=== PATIENT | female | born 1940 | race Caucasian/White ===

== ENCOUNTER 2019-08-18 11:31 | Emergency (ER) | payer MEDICARE, OTHER, SELFPAY ==
[2019-08-18 11:42] VITALS: BP 137/67; PULSE 61; RESP 16; TEMP 36.3; O2SAT 98
--- NOTE | 2019-08-18 11:59 | ED.WOUNDLAC ---
HPI - Wound/Laceration General Chief Complaint: Wound/Laceration Stated Complaint: FALL/R ARM WOUND Time Seen by Provider: 08/18/19 11:33 Source: patient Mode of arrival: ambulatory Limitations: no limitations History of Present Illness HPI narrative: 79 year old female presents to urgent care with complaints of skin tear to right elbow x1 week. Patient reports that she fell in her home 1 week ago and sustained a skin tear to her right elbow region. Patient reports that she is concerned that the area is becoming infected. Patient has been applying [id number] triple antibiotic ointment and dressings with little relief. Patient denies fever, bites, chills, nausea, vomiting, diarrhea or purulent drainage. Onset (ago): week(s) (1) Location: other (right elbow ) Extremity Location: Right: elbow (healing wound ) Place: home Patient tetanus UTD: Yes Context: accidental Associated symptoms: none Treatments prior to arrival: other (Triple antibiotic ointment and dressing) Related Data Home Medications Medication Instructions Recorded Confirmed amlodipine [Norvasc] 5 mg PO DAILY 06/25/19 06/25/19 diclofenac sodium 75 mg PO BID 06/25/19 06/25/19 dicyclomine 10 mg PO BID 06/25/19 06/25/19 losartan 50 mg PO DAILY 06/25/19 06/25/19 pantoprazole 40 mg PO QAM 06/25/19 06/25/19 Allergies Allergy/AdvReac Type Severity Reaction Status Date / Time tetracaine Allergy Severe HEART Unverified 03/02/19 12:47 PLAPITATIONS DURING DENTAL WORK Iodinated Contrast Media Allergy Unknown Verified 07/20/15 08:18 iodine Allergy Unknown Verified 04/28/18 11:08 oxycodone AdvReac Severe SEVERE Verified 03/02/19 12:47 INTOL. N/V, DEHYDRATION Contrast Media Allergy Severe ANAPHYLAXIS Uncoded 03/02/19 12:47 Review of Systems Review of Systems: All systems reviewed & are unremarkable except as noted in HPI and below Constitutional: Constitutional: Denies chills, Denies fatigue, Denies fever(s) and Denies weakness Cardiovascular: Cardiovascular: Denies chest pain, Denies rapid heart rate, Denies radiating jaw, neck or arm pain and Denies slow heart rate Respiratory: Respiratory: Denies cough, Denies dyspnea and Denies wheezing Gastrointestinal: Gastrointestinal: Denies abdominal pain, Denies diarrhea, Denies nausea and Denies vomiting Musculoskeletal: Musculoskeletal: Denies myalgias, Denies arthralgias and Denies joint swelling Integumentary/Breasts: Comments: skin tear to right elbow PMFSH Past Medical History Medical History Arthritis Back pain Sciatic nerve pain down left leg Colitis Depression Diverticulitis Diverticulosis GERD (gastroesophageal reflux disease) Hypercholesterolemia Hypertension IBS (irritable bowel syndrome) Uterine fibroid Surgical History Surgical History History of cholecystectomy History of orthopedic surgery Left knee scope History of spinal surgery July 2009 Family History Family History Mother Hypertension Father Family history of diabetes mellitus in first degree relative Social History Social History Smoking status: Former smoker Smoking end date: 07/14/87 Alcohol intake: current Exam Const: General: healthy appearing, no acute distress and alert Orientation/consciousness: patient oriented x3 Neck: Neck: normal visual inspection and no lymphadenopathy Resp: Effort & Inspection: normal respiratory effort and not tachypneic Auscultation: clear to auscultation bilaterally, no rales and no wheezes Cardio: Rate: regular rate, not bradycardic and not tachycardic Rhythm: regular rhythm Heart sounds: no murmurs Skin: General skin exam: normal color, no jaundice and no pallor Rashes: no rashes Wounds: wounds noted Other: 5 cm healing
== END 2019-08-18 12:15 | disposition home or self-care (01) ==
PROVIDERS: Emergency Provider Nurse Practitioner Family; PCP Student in an Organized Health Care Education/Training Program
DX: S51.001A Unspecified open wound of right elbow, initial encounter (principal); W19.XXXA Unspecified fall, initial encounter; Z87.891 Personal history of nicotine dependence; M19.90 Unspecified osteoarthritis, unspecified site; K21.9 Gastro-esophageal reflux disease without esophagitis; E78.00 Pure hypercholesterolemia, unspecified; I10 Essential (primary) hypertension
CPT/HCPCS: 99213; G0463

== ENCOUNTER 2020-12-27 10:50 | Outpatient (CLI) | payer MEDICARE, OTHER, SELFPAY ==
--- NOTE | ~2020-12-27 | XR_ITS ---
XR hand BI arthritis min 3V DATE: 12/27/2020 11:34 INDICATION: Bilateral hand pain TECHNIQUE: 4 views of each hand COMPARISON: None FINDINGS: Left hand: There is diffuse osteopenia. There is severe narrowing at the radiocarpal joint. There is narrowing at the triscaphe joint. There is severe narrowing and spurring at the first carpometacarpal joint consistent with severe osteoarthr itic arthritis. There is osteoarthritis at multiple joints including the first, fourth and fifth meta carpophalangeal joints and multiple interphalangeal joints. No fracture or dislocation, periosteal reaction or bone destruction. There is minimal calcification at the triangular cartilage. Right hand: There is diffuse osteopenia. There is mild calcification at the triangular cartilage. There is prominent osteophyte is at the first carpometacarpal joint. There is mild osteoarthritic monica nge at the metacarpophalangeal joints. There is osteoarthritis at multiple interphalangeal joints, pa rticularly in the the interphalangeal joint of the first digit and distal interphalangeal joints of t he third and fourth digits. No fracture, dislocation, periosteal reaction or bone destruction. IMPRESSION: Polyarticular osteoarthritis of both hands Mild irregular cartilage calcification Osteopenia Reviewed, dictated and finalized at location A.
--- NOTE | ~2020-12-27 | XR_ITS ---
XR sacroiliac joints min 3V DATE: 12/27/2020 11:34 INDICATION: Nonspecific colitis. TECHNIQUE: AP and bilateral oblique views of the sacroiliac joints COMPARISON: None FINDINGS: Diffuse osteopenia. Posterior surgical fusion including pedicle screws and rods at L4-5. The pubic symphysis and sacroiliac joints are intact. No erosive change or ankylosis at the sacroilia c joints. Mild bilateral hip osteoarthritis. IMPRESSION: No significant abnormality of the sacroiliac joints Posterior surgical spinal fusion at L4-5 Reviewed, dictated and finalized at Location A. Reviewed, dictated and finalized at location A.
[2020-12-27 12:02] LABS: Hematocrit 35.9 % (37.0-47.0); Hemoglobin 12.3 g/dL (12.0-15.0); Mean Corpuscular HGB Conc 34.3 g/dl (32-36); Mean Corpuscular Hemoglobin 32.1 pg (26-34); Mean Corpuscular Volume 93.7 fl (80-100); Mean Platelet Volume 9.2 fl (7.4-10.4); Platelet Count Result 289 k/mm3 (150-375); Red Blood Count 3.83 M/mm3 (4.2-5.4); Red Cell Distribution Width 13.1 % (11.5-14.5); White Blood Count 7.6 K/mm3 (4.5-10.0)
[2020-12-27 12:13] LABS: Rheumatoid Factor < 8.6 IU/ML (<12)
[2020-12-27 12:14] LABS: CRP < 0.5 mg/dL (<1.0)
[2020-12-27 12:19] LABS: Add Urine Microscopic? YES; Appearance Urine Clear (Clear); Bacteria Urine 1+ /hpf; Bilirubin Urine Negative (Negative); Blood Urine Negative (Negative); Color Urine Straw (Yellow); Glucose Urine UA Negative (Negative); Ketones Urine Negative (Negative); Leukocyte Esterase Ur 1+ LEU/UL (Negative); Nitrate Urine Negative (Negative); Protein Urine Negative (Negative); RBC Urine 0-2 /hpf (0-2); Specific Grav Ur 1.008 (1.001-1.035); Squamous Epithelial Cell Urine Rare /hpf (Few); Urobilinogen Urine Negative mg/dL (<2.0); WBC Urine 21-30 /hpf
[2020-12-27 12:37] LABS: Erythrocyte Sedimentation Rate 26 mm/hr (0-20)
[2020-12-31 12:35] LABS: Anti Cyclic Citrullinated Pept <16 Units (<20)
[2021-01-01 13:34] LABS: SM Antibody <1.0; SM/RNP Antibody <1.0
== END 2020-12-27 10:51 | disposition home or self-care (01) ==
PROVIDERS: PCP Student in an Organized Health Care Education/Training Program; Visit Provider Internal Medicine
DX: K52.839 Microscopic colitis, unspecified (principal); R76.8 Other specified abnormal immunological findings in serum; R89.9 Unspecified abnormal finding in specimens from other organs, systems and tissues; Z98.1 Arthrodesis status; M85.841 Other specified disorders of bone density and structure, right hand; M85.842 Other specified disorders of bone density and structure, left hand; M19.041 Primary osteoarthritis, right hand; M19.042 Primary osteoarthritis, left hand
CPT/HCPCS: 36415; 72202; 73130; 81001; 85027; 85652; 86140; 86200; 86235; 86430; 87077; 87086; 87088; 87186

== ENCOUNTER → 2021-03-20 12:02 | Outpatient (CLI) | payer MEDICARE, OTHER, SELFPAY ==
--- NOTE | ~2021-03-20 | DEXA_ITS ---
Bone Density Report Name: Brenda Carlos Age: 80 Sex: Female Ethnicity: White Date of : 1940 Indication: postmenopausal; screening for osteoporosis; height loss; inflammatory bowel disease; history of glucocorticoids; Referring Provider: Ulysses, Fausto Study: Bone densitometry was performed. Exam Date: March 20, 2021 Accession number: [id number] Bone Density: Region BMD T-score Z-score Classification AP Spine (L1, L2) 1.209 2.1 4.6 Normal Femoral Neck (Left) 0.696 -1.4 1.0 Osteopenia Total Hip (Left) 0.866 -0.6 1.5 Normal Femoral Neck (Right) 0.754 -0.9 1.5 Normal Total Hip (Right) 0.827 -0.9 1.1 Normal Total Hip Mean 0.847 -0.8 1.3 Normal World Health Organization criteria for BMD impression classify patients as: Normal (T-score at or above -1.0), Osteopenia (T-score between -1.0 and -2.5), or Osteoporosis (T-score at or below -2.5). 10-year Fracture Risk(1): Major Osteoporotic Fracture 18% Hip Fracture 4.7% Reported Risk Factors: [place] (), Neck BMD=0.696, BMI=31.3, glucocorticoids (1) FRAX(R) Version 3.08. Fracture probability calculated for an untreated patient. Fracture probability may be lower if the patient has received treatment. Previous Exams: Region Exam Age BMD T-score BMD Change BMD Change Date g/cm2 vs Baseline vs Previous AP Spine(L1, L2) 03/20/2021 80 1.209 2.1 0.037* 0.056* 09/08/2012 72 1.153 1.6 -0.018 -0.054* 04/13/2010 69 1.207 2.1 0.036* 0.036* 04/11/2008 67 1.172 1.8 Total Hip(Left) 03/20/2021 80 0.866 -0.6 -0.131* -0.044* 09/08/2012 72 0.910 -0.3 -0.086* -0.048* 04/13/2010 69 0.958 0.1 -0.039* -0.039* 04/11/2008 67 0.996 0.4 Total Hip(Right) 03/20/2021 80 0.827 -0.9 -0.073* -0.070* 09/08/2012 72 0.897 -0.4 -0.002 -0.004 04/13/2010 69 0.901 -0.3 0.001 0.001 04/11/2008 67 0.900 -0.3 *Denotes significance at 95% confidence level, LSC for AP Spine = 0.022 g/cm2, LSC for Total Hip = 0.027 g/cm2 Clinical Information Provided by Patient: Has taken Glucocorticoids Has the following medical conditions: Inflammatory bowel diseases, colitis, uses oral steriod for this Patient maximum height was 68 Menopause Age: 50 No regular weight bearing exercise Drinks caffeinated beverages Onset of menses at age 15.5 Number of children 4 --
--- NOTE | ~2021-03-20 | MM_ITS ---
EXAMINATION: MM screening andre BI w cecilia HISTORY: Screening mammogram TECHNIQUE: Craniocaudal and mediolateral oblique 3-D tomosynthesis images were obtained and synthetic 2-D images were generated. CAD analysis was submitted and interpreted. COMPARISON: 09/23/2014, 09/08/2012 bilateral digital screening mammogram examinations BREAST PARENCHYMAL COMPOSITION: There are scattered areas of fibroglandular density. FINDINGS: Scattered bilateral benign calcifications. There is no evidence of suspicious mass, calcifi cation, or architectural distortion to suggest malignancy in either breast. There has been no suspici ous interval change. IMPRESSION: 1. No mammographic evidence of malignancy. 2. Recommend routine screening mammography in one year. BI-RADS Category 2: Benign finding(s). Reviewed, dictated and finalized at location A.
== END ==
PROVIDERS: PCP Student in an Organized Health Care Education/Training Program; Visit Provider Student in an Organized Health Care Education/Training Program
DX: Z12.31 Encounter for screening mammogram for malignant neoplasm of breast (principal); Z78.0 Asymptomatic menopausal state; M85.852 Other specified disorders of bone density and structure, left thigh
CPT/HCPCS: 77063; 77067; 77080

== ENCOUNTER → 2022-08-08 10:23 | Outpatient (CLI) | payer MEDICARE, OTHER, SELFPAY ==
--- NOTE | ~2022-08-08 | MM_ITS ---
EXAMINATION: MM screening [facility] BI w cecilia HISTORY: Screening mammogram TECHNIQUE: Craniocaudal and mediolateral oblique 3-D tomosynthesis images were obtained and synthetic 2-D images were generated. CAD analysis was submitted and interpreted. COMPARISON: 03/20/2021, 09/23/2014, 09/09/2012 BREAST PARENCHYMAL COMPOSITION: There are scattered areas of fibroglandular density. FINDINGS: No suspicious mass, calcification, or architectural distortion are identified in either marva ast to suggest malignancy. There has been no suspicious interval change. IMPRESSION: 1. No mammographic evidence of malignancy. 2. Recommend routine screening mammography while the patient remains in good health. BI-RADS Category 1: Negative Reviewed, dictated and finalized at location A. LINER IMPRESSION: 1. No mammographic evidence of malignancy. 2. Recommend routine screening mammography while the patient remains in good he alth. BI-RADS Category 1: Negative
== END ==
PROVIDERS: PCP Student in an Organized Health Care Education/Training Program; Visit Provider Student in an Organized Health Care Education/Training Program
DX: Z12.31 Encounter for screening mammogram for malignant neoplasm of breast (principal)
CPT/HCPCS: 77063; 77067

== ENCOUNTER 2023-04-27 11:03 | Emergency (ER) | payer MEDICARE, OTHER, SELFPAY ==
[2023-04-27 11:08] VITALS: BP 171/101; PULSE 87; RESP 16; TEMP 36.4; O2SAT 99
[2023-04-27] MEDS: amLODIPine BESYLATE 5 MG TABLET PO (11:54)
[2023-04-27] MEDS: LOSARTAN POTASSIUM 50 MG TABLET PO (11:54)
[2023-04-27] MEDS: METOPROLOL SUCCINATE EXT REL 12.5 MG TABCR PO (12:05)
--- NOTE | 2023-04-27 12:35 | ED.EPISTAXIS ---
HPI - Epistaxis General Chief complaint: Epistaxis Stated complaint: epistaxis Time Seen by Provider: 04/27/23 11:07 Source: patient, EMS and RN notes reviewed Mode of arrival: EMS Limitations: no limitations History of Present Illness HPI Narrative: This is an 82 year old female who presents for evaluation of epistaxis. She reports her blooding started 2 hours prior to arrival. She is have bright red bleeding from her left nostril. She denies any trauma. She denies history of epistaxis. She takes eliquis for atrial fibrillation. She has been trying to stop bleeding with pressure. She states she is starting form small clots. She also also noticing so blood posteriorly. She denies dizziness or lightheadedness. She has been unable to take any of her medications this morning. Related Data Home Medications Medication Instructions Recorded Confirmed amlodipine 5 mg tablet (Norvasc) 5 mg PO DAILY 06/25/19 03/20/23 losartan 50 mg tablet 50 mg PO DAILY 06/25/19 03/20/23 atorvastatin 10 mg tablet (Lipitor) 10 mg PO DAILY 02/05/21 03/20/23 fluoxetine 10 mg capsule 10 mg PO DAILY 02/05/21 03/20/23 apixaban 5 mg tablet (Eliquis) 5 mg PO BID 03/28/22 03/20/23 metoprolol succinate 25 mg 12.5 mg PO DAILY 03/28/22 03/20/23 tablet,extended release 24 hr olopatadine 0.1 % eye drops 1 drp EACH EYE BID 03/28/22 03/20/23 (Pataday Twice Daily Relief) metoprolol succinate 25 mg 25 mg PO DAILY 03/20/23 03/20/23 tablet,extended release 24 hr Allergies Allergy/AdvReac Type Severity Reaction Status Date / Time tetracaine Allergy Severe HEART Verified 03/20/23 10:38 PLAPITATIONS DURING DENTAL WORK Iodinated Contrast Media AdvReac Severe Anaphylaxis Verified 03/20/23 10:38 iodine AdvReac Severe Anaphylactic Verified 03/20/23 10:38 Shock oxycodone AdvReac Severe SEVERE Verified 03/20/23 10:38 INTOL. N/V, DEHYDRATION Contrast Media Allergy Severe ANAPHYLAXIS Uncoded 02/05/21 13:33 Review of Systems Review of Systems: All systems reviewed & are unremarkable except as noted in HPI and below PMFSH Past Medical History Medical History Afib RADHA positive Arthritis Back pain Sciatic nerve pain down left leg Colitis Counseling on health promotion and disease prevention Depression Diverticulitis Diverticulosis GERD (gastroesophageal reflux disease) Hypercholesterolemia Hypertension IBS (irritable bowel syndrome) Inflammatory arthritis Obese Spinal stenosis at L4-L5 level Uterine fibroid Surgical History Surgical History (Updated 03/20/23 @ 10:42 by Cesario Torrez) History of cholecystectomy History of orthopedic surgery Left knee scope History of right hip replacement History of spinal surgery July 2009 Family History Family History Mother Hypertension Father Family history of diabetes mellitus in first degree relative Social History Social History Smoking status: Former smoker Smoking end date: 07/14/87 Alcohol intake: current Substance use: never Exam Const: General: no acute distress and alert Nutritional Appearance: well nourished Orientation/consciousness: patient oriented x3 HENMT: Head: normal to inspection Face/Nose/Sinus: Epistaxis present on the left source not visualized; Negative for clots present Face and sinus: normal facial exam Mouth: Yes Normal oral and palatal mucosa present Eyes: EOM: EOMs intact bilaterally Skin: General skin exam: normal color Rashes: no rashes Wounds: no wounds Neuro: General: patient oriented x3, moves all extremities and CN's II-XI intact bilaterally Extrem: General: normal to inspection Psych: Mental Status: mental status grossly normal Affect: normal affect Attitude: cooperative Course Reevaluation(s) Reevaluation #1: PAtient bleeding has b
[2023-04-27 12:44] VITALS: BP 162/84; PULSE 70; RESP 18; O2SAT 98
== END 2023-04-27 13:09 | disposition home or self-care (01) ==
PROVIDERS: Emergency Provider General Practice; PCP Student in an Organized Health Care Education/Training Program
DX: R04.0 Epistaxis (principal); I48.91 Unspecified atrial fibrillation; M19.90 Unspecified osteoarthritis, unspecified site; F32.A Depression, unspecified; K21.9 Gastro-esophageal reflux disease without esophagitis; I10 Essential (primary) hypertension; E78.5 Hyperlipidemia, unspecified
CPT/HCPCS: 30901; 99283; A9270

== ENCOUNTER 2023-07-15 10:57 | Outpatient (RCR) | payer MEDICARE, OTHER, SELFPAY ==
[2023-05-05 18:39] LABS: Prothrombin Time 13.4 Seconds (11.1-14.7)
[2023-05-13 18:31] LABS: INR 1.5; Prothrombin Time 19.5 Seconds (11.1-14.7)
[2023-05-20 19:29] LABS: INR 1.6; Prothrombin Time 19.5 Seconds (11.1-14.7)
[2023-05-27 18:26] LABS: INR 1.6; Prothrombin Time 19.6 Seconds (11.1-14.7)
[2023-06-10 13:58] LABS: INR 1.6; Prothrombin Time 20.1 Seconds (11.1-14.7)
[2023-06-24 13:01] LABS: INR 1.9; Prothrombin Time 23.5 Seconds (11.1-14.7)
[2023-07-15 20:09] LABS: INR 1.7; Prothrombin Time 20.6 Seconds (11.1-14.7)
== END 2023-08-03 23:59 | disposition home or self-care (01) ==
LOC: ANHGOSHLAB 10:57
PROVIDERS: PCP Student in an Organized Health Care Education/Training Program; Visit Provider Internal Medicine Cardiovascular Disease
DX: Z51.81 Encounter for therapeutic drug level monitoring (principal); I48.0 Paroxysmal atrial fibrillation; Z79.01 Long term (current) use of anticoagulants
CPT/HCPCS: 36415; 85610

== ENCOUNTER 2023-10-28 10:43 | Outpatient (RCR) | payer MEDICARE, OTHER, SELFPAY ==
[2023-08-19 11:58] LABS: INR 1.2; Prothrombin Time 15.7 Seconds (11.1-14.7)
[2023-09-02 14:26] LABS: Prothrombin Time 23.9 Seconds (11.1-14.7)
[2023-09-16 13:23] LABS: INR 1.4; Prothrombin Time 17.9 Seconds (11.1-14.7)
[2023-09-30 14:11] LABS: INR 2.1; Prothrombin Time 24.7 Seconds (11.1-14.7)
[2023-10-28 19:58] LABS: INR 2.6; Prothrombin Time 30.2 Seconds (11.1-14.7)
== END 2023-11-17 23:59 | disposition home or self-care (01) ==
LOC: ANHGOSHLAB 10:43
PROVIDERS: PCP Student in an Organized Health Care Education/Training Program
DX: Z51.81 Encounter for therapeutic drug level monitoring (principal); I48.0 Paroxysmal atrial fibrillation; Z79.01 Long term (current) use of anticoagulants
CPT/HCPCS: 36415; 85610

== ENCOUNTER 2023-11-25 10:34 | Outpatient (CLI) | payer MEDICARE, OTHER, SELFPAY ==
[2023-11-25 18:43] LABS: Basophils Percent Auto 0.4 % (0.2-1.2); Eosinophils Percent Auto 0.4 % (0-4.4); Hematocrit 39.1 % (37.0-47.0); Hemoglobin 12.4 g/dL (12.0-15.0); Immature Granulocyte Absolute 0.03 K/mm3 (0.00-0.031); Immature Granulocyte Percent A 0.4 % (0-0.5); Lymphocytes Absolute Auto 1.37 K/mm3 (0.9-3.2); Mean Corpuscular HGB Conc 31.7 g/dl (32-36); Mean Corpuscular Volume 94.7 fl (80-100); Mean Platelet Volume 9.3 fl (7.4-10.4); Monocytes Absolute Auto 0.5 K/mm3 (0.1-0.6); Monocytes Percent Auto 6.1 % (2.6-8.5); Neutrophils Absolute Auto 6.1 K/mm3 (1.3-6.7); Neutrophils Percent Auto 75.7 % (45.5-73.1); Platelet Count Result 421 k/mm3 (150-375); Red Blood Count 4.13 M/mm3 (4.2-5.4); Red Cell Distribution Width 15.4 % (11.5-14.5)
[2023-11-25 21:09] LABS: Alanine Aminotransferase 21 U/L (6-35); Albumin Level 4.4 g/dL (3.5-5.1); Alkaline Phosphatase 104 U/L (38-126); Anion Gap 8 mmol/L (4-12); Aspartate Amino Transferase 32 U/L (14-36); Bilirubin,Total 0.7 mg/dL (0.2-1.3); Blood Urea Nitrogen 10 mg/dL (7-17); Calcium 9.3 mg/dL (8.4-10.2); Carbon Dioxide 27 mmol/L (22-30); Chloride 96 mmol/L (98-107); Cholesterol 164 mg/dL (0-200); Estimated Glomerular Filt Rate > 60; Glucose 95 mg/dL (65-110); HDL Direct 69 mg/dL; Potassium 4.4 mmol/L (3.4-5.0); Sodium 131 mmol/L (137-145); Triglycerides 114 mg/dL (<150)
[2023-11-25 21:20] LABS: LDL Cholesterol Direct 79 mg/dL
== END 2023-11-25 10:35 | disposition home or self-care (01) ==
LOC: ANHGOSHLAB 10:34
PROVIDERS: PCP Student in an Organized Health Care Education/Training Program; Visit Provider Student in an Organized Health Care Education/Training Program
DX: E78.5 Hyperlipidemia, unspecified (principal); I10 Essential (primary) hypertension
CPT/HCPCS: 36415; 80053; 80061; 84443; 85025; 85610

== ENCOUNTER 2024-02-17 09:56 | Outpatient (RCR) | payer MEDICARE, OTHER, SELFPAY ==
[2023-11-25 18:53] LABS: INR 2.5; Prothrombin Time 28.9 Seconds (11.1-14.7)
[2023-12-30 13:01] LABS: INR 2.6; Prothrombin Time 28.6 Seconds (11.1-14.7)
[2024-01-20 13:42] LABS: INR 3.1; Prothrombin Time 32.1 Seconds (11.1-14.7)
[2024-02-17 14:37] LABS: INR 2.5; Prothrombin Time 26.9 Seconds (11.1-14.7)
== END 2024-02-23 23:59 | disposition home or self-care (01) ==
LOC: ANHGOSHLAB 09:56
PROVIDERS: PCP Student in an Organized Health Care Education/Training Program; Visit Provider Internal Medicine Cardiovascular Disease
DX: Z51.81 Encounter for therapeutic drug level monitoring (principal); I48.0 Paroxysmal atrial fibrillation; Z79.01 Long term (current) use of anticoagulants
CPT/HCPCS: 36415; 85610

== ENCOUNTER 2024-03-16 10:40 | Outpatient (CLI) | payer MEDICARE, OTHER, SELFPAY ==
[2024-03-16 15:37] LABS: Anion Gap 10 mmol/L (4-12); Blood Urea Nitrogen 11 mg/dL (7-17); Calcium 9.5 mg/dL (8.4-10.2); Carbon Dioxide 29 mmol/L (22-30); Chloride 92 mmol/L (98-107); Estimated Glomerular Filt Rate > 60; Glucose 112 mg/dL (65-110); Potassium 4.3 mmol/L (3.4-5.0); Sodium 131 mmol/L (137-145)
== END 2024-03-16 10:41 | disposition home or self-care (01) ==
PROVIDERS: PCP Student in an Organized Health Care Education/Training Program; Visit Provider Student in an Organized Health Care Education/Training Program
DX: E87.1 Hypo-osmolality and hyponatremia (principal)
CPT/HCPCS: 36415; 80048; 84443; 85610

== ENCOUNTER 2024-05-19 10:40 | Outpatient (RCR) | payer MEDICARE, OTHER, SELFPAY ==
[2024-03-16 15:00] LABS: INR 2.4; Prothrombin Time 26.5 Seconds (11.1-14.7)
[2024-04-20 14:13] LABS: INR 2.6; Prothrombin Time 28.4 Seconds (11.1-14.7)
[2024-05-20 09:57] LABS: INR 2.5; Prothrombin Time 27.6 Seconds (11.1-14.7)
== END 2024-06-14 23:59 | disposition home or self-care (01) ==
LOC: ANHGOSHLAB 10:40
PROVIDERS: PCP Student in an Organized Health Care Education/Training Program
DX: I48.0 Paroxysmal atrial fibrillation (principal); Z79.01 Long term (current) use of anticoagulants
CPT/HCPCS: 36415; 85610

== ENCOUNTER 2024-06-15 10:38 | Outpatient (CLI) | payer MEDICARE, OTHER, SELFPAY ==
[2024-06-15 13:16] LABS: Anion Gap 4 mmol/L (4-12); Blood Urea Nitrogen 9 mg/dL (7-17); Calcium 9.3 mg/dL (8.4-10.2); Carbon Dioxide 31 mmol/L (22-30); Chloride 96 mmol/L (98-107); Estimated Glomerular Filt Rate > 60; Glucose 133 mg/dL (65-110); Potassium 4.1 mmol/L (3.4-5.0); Sodium 131 mmol/L (137-145)
== END 2024-06-15 10:39 | disposition home or self-care (01) ==
LOC: ANHGOSHLAB 10:39
PROVIDERS: PCP Student in an Organized Health Care Education/Training Program; Visit Provider Student in an Organized Health Care Education/Training Program
DX: E87.1 Hypo-osmolality and hyponatremia (principal)
CPT/HCPCS: 36415; 80048

== ENCOUNTER 2024-08-31 10:03 | Outpatient (RCR) | payer MEDICARE, OTHER, SELFPAY ==
[2024-06-15 13:10] LABS: Prothrombin Time 22.9 Seconds (11.1-14.7)
[2024-07-13 12:43] LABS: INR 2.5; Prothrombin Time 27.3 Seconds (11.1-14.7)
[2024-08-10 13:47] LABS: INR 3.9; Prothrombin Time 38.2 Seconds (11.1-14.7)
[2024-08-31 16:52] LABS: Prothrombin Time 31.3 Seconds (11.1-14.7)
== END 2024-09-13 23:59 | disposition home or self-care (01) ==
LOC: ANHGOSHLAB 10:03
PROVIDERS: PCP Student in an Organized Health Care Education/Training Program
DX: Z51.81 Encounter for therapeutic drug level monitoring (principal); I48.0 Paroxysmal atrial fibrillation; Z79.01 Long term (current) use of anticoagulants
CPT/HCPCS: 36415; 80048; 85610

== ENCOUNTER 2024-10-12 12:01 | Outpatient (NON) | payer MEDICARE, OTHER, SELFPAY ==
--- OUTSIDE RECORDS SUMMARY | 2024-10-12 13:09 | XMS_ITS | Encounter Summary ---
Author Organization [facility] Address [facility] [place] [address] Care Team Providers Care Infant Teacher Name Role Phone Fausto Arora DO Primary Care Provider + Encounter Details Date Type Department Care Team (Late st Contact Info) Description 05/28/2023 Abstract [facility] [address] [id number] Jocelyn Gonzalez MA Social History Tobacco Use Types Packs/Day Years Used Date Smoking Tobacco: Former Cigarettes 0.3 20 1 980 - 1999 Cigars Smokeless Tobacco: Never Comments:Former, Quit 1999 Alcohol Use Standard Drinks/Week Comments Yes 0 (1 standard drink = 0.6 oz pur e alcohol) 1 drinks/day (rahul) AUDIT-C Answer Date Recorded Frequency of Alcohol Consumption Not on file 12/04/2018 Average Number of Drinks 1 or 2 019 Frequency of Binge Drinking Not on file 11/12 PHQ-2 Answer Date Recorded Patient Health Questionnaire-2 Score 0 08/16/2022 Comments No Sex and Gender Information Value Date Recorded Sex Assigned at Female 10/07/2024 10:44 AM CDT Legal Sex Female 8:31 PM CDT Gender Identity Female 10/07/2024 10:44 AM CDT Sexual Orientation Not on file documented as of this encounter Functional Status * RETIRED Are you deaf or do you have serious difficulty hearing Answer Date of Assessment Author Status No 01/17/2022 6:29 PM CDT Activ e * RETIRED Are you blind or do you have serious difficulty seeing, even when wearing glasses? Answer Date of Assessment Author Status No 01/17/2022 6:29 PM CDT Activ e * Do you have serious difficulty walking or climbing stairs? Answer Date of Assessment Author Status Yes 01/17/2022 6:29 PM Hitesh Chi RN Active * Do you have difficulty dressing or bathing? Answer Date of Assessment Author Status Yes 01/17/2022 6:29 PM Hitesh Chi RN Active * Because of a physical, mental, or emotional condition, do you have difficulty doing errands alone such as visiting a doctor's office or shopping? Answer Date of Assessment Author Status No 01/17/2022 6:29 PM Hitesh Chi RN Active documented as of this encounter Mental Status * Because of a physical, mental, or emotional condition, do you have serious difficulty concentrating, remembering, or making decisions? Answer Entry Date Author Status No 01/17/2022 6:29 PM Hitesh Chi RN Active documented in this encounter Plan of Treatment Not on file documented as of this encounter Procedures Procedure Name Priority Date/Time Associated Diagnosis Comments PROTIME (OUTSIDE LAB) Routine 04/20/2024 PROTIME (OUTSIDE LAB) Routine 10/28/2023 PROTIME (OUTSIDE LAB) Routine 06/24/2023 PROTIME (OUTSIDE LAB) Routine 06/10/2023 PROTIME (OUTSIDE LAB) Routine 05/27/2023 documented in this encounter Results * PROTIME (OUTSIDE LAB) (04/20/2024) PROTIME 28.4 INR 2.6 04/20/2024 us Default History Genericprovider LAB-OUTSIDE/ABST RACTED Final Result * PROTIME (OUTSIDE LAB) (10/28/2023) PROTIME 30.2 INR 2.6 10/28/2023 us Default History Genericprovider LAB-OUTSIDE/ABST RACTED Final Result * PROTIME (OUTSIDE LAB) (06/24/2023) PROTIME 23.5 INR 1.9 06/24/2023 us Default History Genericprovider LAB-OUTSIDE/ABST RACTED Final Result * PROTIME (OUTSIDE LAB) (06/10/2023) PROTIME 20.1 INR 1.6 06/10/2023 us Default History Genericprovider LAB-OUTSIDE/ABST RACTED Final Result * PROTIME (OUTSIDE LAB) (05/27/2023) PROTIME 19.6 INR 1.6 05/27/2023 us Default History Genericprovider LAB-OUTSIDE/ABST RACTED Final Result documented in this encounter Visit Diagnoses Not on filedocumented in this encounter Additional Health Concerns Assessment Noted Time PHQ-9 Depression Total Score: 2 09/28/19 22 11:41 AM CDT documented as of this encounter Care Teams Infant Teacher Relationship Specialty Start Date End Date Fausto Arora DO [address] [place] [id number] PCP - General FAMILY PRACTICE 11/09/18 documented as of this encounter
--- OUTSIDE RECORDS SUMMARY | 2024-10-12 13:09 | XMS_ITS | Clinical Summary ---
Author Organization [facility] Address [address] [place] [address] Care Team Providers Care Payment Manager Name Role Phone Unavailable Primary Care Provider Unavailabl e Source Comments [facility],non-owned Affiliates and Associated Physician Practices is amultiple site organization consisting of ambulatory clinics and hospital sitesin [place], [place], [place] and [place]. This disclosure is being madepursuant to the Care Everywhere program and may not contain all information available regarding this patient. Last updated 18.[facility] Immunizations Name Administration Dates Next Due INFLUENZA VACCINE, HIGH-DOSE , QUADR. (FLUZONE HIGH-DOSE QUADRIVALENT; 65Y+), 0.7 ML (HD-[id number]) 04/17/2017 Social History Tobacco Use Types Packs/Day Years Used Date Smoking Tobacco: Never Assessed Sex and Gender Information Value Date Recorded Sex Assigned at Not on file Gender Identity Not on file Sexual Orientation Not on file Plan of Treatment Health Maintenance Due Date Last Done Comments BONE DENSITY TESTING 1940 MEDICARE AWV 12 MONTHS 1940 DTAP/TDAP/TD VACCINES (1 - Tdap) 1959 PNEUMOCOCCAL VACCINE 50+ (1 of 1 - PCV) 1990 ZOSTER VACCINE (1 of 2) 1990 Respiratory Syncytial Virus (RSV) Vaccine Pt: or over 60 yrs (1 - 1-dose 75+ series) 2015 COVID-19 VACCINE ( - 2023-2 5 season) 2024 INFLUENZA VACCINE (#1) 2024 04/17/2017 DEPRESSION SCREENING 07/14/2024 HEPATITIS B VACCINE Aged Out No longe r eligible based on patient's age to complete this topic HIB VACCINE Aged Out No longer eligi ble based on patient's age to complete this topic HPV VACCINE Aged Out No longer eligi ble based on patient's age to complete this topic MENINGOCOCCAL (Group B) VACC INE SHARED DECISION-MAKING Aged Out No longer eligibl e based on patient's age to complete this topic MENINGOCOCCAL GROUPS A/C/Y/W VACCINE Aged Out No longer eligible b ased on patient's age to complete this topic
--- OUTSIDE RECORDS SUMMARY | 2024-10-12 13:09 | XMS_ITS | Encounter Summary ---
Author Organization [facility] Address [facility] [place] [address] Care Team Providers Care Marine Service Station Attendant Name Role Phone Fausto Arora DO Primary Care Provider + Encounter Details Date Type Department Care Team (Late st Contact Info) Description 08/19/2023 Abstract [facility] [address] Jocelyn Gonzalez MA Social History Tobacco Use [...] Associated Diagnosis Comments PROTIME (OUTSIDE LAB) Routine 09/21/2024 PROTIME (OUTSIDE LAB) Routine 07/13/2024 PROTIME (OUTSIDE LAB) Routine 05/19/2024 PROTIME (OUTSIDE LAB) Routine 02/17/2024 PROTIME (OUTSIDE LAB) Routine 09/16/2023 PROTIME (OUTSIDE LAB) Routine 09/02/2023 PROTIME (OUTSIDE LAB) Routine 08/19/2023 documented in this encounter Results * PROTIME (OUTSIDE LAB) (09/21/2024) PROTIME 30.2 INR 2.8 09/21/2024 us Default History Genericprovider LAB-OUTSIDE/ABST RACTED Final Result * PROTIME (OUTSIDE LAB) (07/13/2024) PROTIME 27.3 INR 2.5 07/13/2024 us Default History Genericprovider LAB-OUTSIDE/ABST RACTED Final Result * PROTIME (OUTSIDE LAB) (05/19/2024) Pathologist [facility] [place] PROTIME 27.6 INR 2.5 05/19/2024 us Default History Genericprovider LAB-OUTSIDE/ABST RACTED Final Result * [facility] (OUTSIDE LAB) (02/17/2024[facility]error,deleted 02/17/2024 us Default History Genericprovider LAB-OUTSIDE/ABST RACTED Edited Result - Final * PROTIME (OUTSIDE LAB) (09/16/2023) Pathologist [facility] [place] PROTIME 17.9 INR 1.4 09/16/2023 us Default History Genericprovider LAB-OUTSIDE/ABST RACTED Final Result * PROTIME (OUTSIDE LAB) (09/02/2023) Pathologist [facility] [place] PROTIME 23.9 INR 2.0 09/02/2023 us Default History Genericprovider LAB-OUTSIDE/ABST RACTED Final Result * PROTIME (OUTSIDE LAB) (08/19/2023) Pathologist [facility] [place] PROTIME 15.7 INR 1.2 08/19/2023 us Default History Genericprovider LAB-OUTSIDE/ABST RACTED Final Result documented in this encounter Visit Diagnoses Not on filedocumented in this encounter Additional Health Concerns Assessment Noted Time PHQ-9 Depression Total Score: 2 09/28/19 22 11:41 AM CDT documented as of this encounter Care Teams Marine Service Station Attendant Relationship Specialty Start Date End Date Fausto Arora DO [address] [place] [id number] PCP - General FAMILY PRACTICE 11/09/18 documented as of this encounter
--- OUTSIDE RECORDS SUMMARY | 2024-10-12 13:09 | XMS_ITS | Clinical Summary ---
Author Organization [facility] Address [address] [place] [address] Care Team Providers Care News Reporter Name Role Phone Fausto Arora DO Primary Care Provider + Allergies Active Allergy Reactions Criticality Noted Date Comments Iodine Anaphylaxis High 12/04/2018 Oxycodone Unknown,Nausea and Vomiting High 10/05/2020 Believes she was just given too much. Tetracaine Palpitations High 03/20/2023 Medications dicyclomine 10 MG capsuleIndication s:Irritable Bowel Syndrome Take 1 capsule (10 mg total) by mouth 3 (three) times daily as needed. Indications: Irritable Bowel Syndrome 5 019 Active budesonide EC 3 MG capsuleIndication s:Inflammatory bowel disease (IBD) Take 1 capsule (3 mg total) by mouth daily. Indications: Inflammatory bowel disease (IBD) Active Misc. Devices (ROLLATOR ULTRA-LIGHT) MiscIndications:P rimary osteoarthritis of right hip,Spinal stenosis of lumbar region, unspecified whether neurogenic claudication present,Right foot pain Use daily 1 each 022 Active Multiple Vitamins-Iron (DAILY VITAMIN/IRON) TabIndications:Pa roxysmal atrial fibrillation (CMS/HCC HHS/HCC) Take 1 tablet by mouth daily. 30 tablet 022 Active Additional Information Patient taking differently:1 tablet Oral Daily,Indications: Nutritional Support, Reported on 10/07/2024 PANTOPRAZOLE EC 40 MG tabletIndications :Paroxysmal atrial fibrillation (CMS/HCC HHS/HCC) TAKE 1 TABLET(40 MG) BY MOUTH DAILY 90 tablet 1 Active amoxicillin (AMOXIL) 500 MG capsule Take 4 capsules (2,000 mg total) by mouth once. 024 Active metoprolol succinate ER (TOPROL-XL) 25 MG 24 hr tablet Take 0.5 tablets (12.5 mg total) by mouth daily. 45 tablet 1 024 Active meclizine (ANTIVERT) 25 MG tabletIndications :Dizziness Take 1 tablet (25 mg total) by mouth 3 (three) times daily as needed. 30 tablet 024 Active warfarin (COUMADIN) 2.5 MG tablet TAKE 1 TABLET (2.5MG) BY MOUTH ON FRIDAY EVENINGS, TAKE 2 TABLETS (5MG) ALL THE REST OF THE EVENINGS. 156 tablet 1 025 Active Additional Information Patient taking differently: TAKE 1 TABLET (2.5MG) BY MOUTH ON FRIDAY AND FRIDAY EVENINGS, TAKE 2 TABLETS (5MG) ALL THE REST OF THE EVENINGS., Reported on 10/07/2024 atorvastatin (LIPITOR) 10 MG tabletIndications :Hyperlipidemia TAKE 1 TABLET NIGHTLY AT BEDTIME 90 tablet 025 Active FLUoxetine (PROZAC) 10 MG capsuleIndication s:Current mild episode of major depressive disorder without prior episode TAKE 1 CAPSULE BY MOUTH EVERY DAY 90 capsule 025 Active valsartan (DIOVAN) 160 MG tabletIndications :Essential hypertension TAKE 1 TABLET(160 MG) BY MOUTH DAILY 90 tablet 025 Active HYDROcodone-aceta minophen (NORCO) 10-325 MG tabletIndications :Chronic Pain Take 1 tablet by mouth every 6 (six) hours as needed for Pain. Indications: Chronic Pain 90 tablet 025 Active Menthol-Zinc Oxide (CALMOSEPTINE EX) Ac tive valsartan (DIOVAN) 160 MG tabletIndications :Essential hypertension TAKE 1 TABLET(160 MG) BY MOUTH DAILY 90 tablet 024 2024 Discontinued HYDROcodone-aceta minophen (NORCO) 10-325 MG tabletIndications :Chronic Pain Take 1 tablet by mouth every 6 (six) hours as needed for Pain. Indications: Chronic Pain 90 tablet 025 2024 Discontinued(R eorder) Active Problems Problem Noted Date Diagnosed Date Paroxysmal atrial fibrillation ([facility]/HCC [facility]/HCC) 01/21/2022 Hip osteoarthritis 01/18/2022 Status post total replacement of right hip 01/17 Pain of right sacroiliac joint 09/19/2021 Osteoarthritis of hip 09/19/2021 Lumbar spondylosis 09/19/2021 Spinal stenosis of lumbar region 05/04/2021 Disorder of sacrum 05/04/2021 Sprain of sacroiliac ligament 05/04/2021 Lumbosacral spondylosis without myelopathy 05/04 Acquired trigger finger 05/04/2021 Current mild episode of jakob r depressive disorder without prior episode 03/23/2020 Diarrhea, unspecified type 02/12/2019 Right foot pain 02/12/2019 Frequent headaches 02/12/2019 Spinal stenosis Osteoarthritis IBS (irritable bowel syndrome) Hypertension Hyperlipidemia Depression UC (ulcerative colitis) ([facility]) Anxiety Encounters Date Type Department Care Team Description 10/07/2024 10:20 AM CDT Office Visit [facility] Family & Internal [address] [phone] Fausto Arora, DO Medication Management (The patient presents for medication follow up. /Calmoseptine- Patient states she uses this for itching under her breasts ); Leg Pain (The patient states she has noticed tingling in her legs. Mainly her left leg ) 10/07/2024 Travel 09/29/2024 Patient Outreach [facility] Family Internal [address] [phone] Fausto Arora, DO Pre-visit Gap Closure 09/24/2024 Telephone [facility] Internal [address] [phone] Fausto Arora, DO Lab Results 09/23/[address] [phone] Fausto Arora, DO Refill Request 09/22/2024 Anti-Coag Telephone Call [facility] [address] [address] Taisha Krishnan RN Anticoagulation (protime) 09/21/2024 Scan HEALTH INFO SRVCS Scanned, [facility] (SCAN) 09/08/2024 Anti-Coag Telephone Call [facility], [address] [address] Anny Mendes RN Anticoagulation (INR) 08/31/2024 Scan HEALTH INFO SRVCS Scanned, [facility] (SCAN) 08/20/2024 Telephone [facility] Family & Internal Medicine [address] [phone] Fausto Arora DO Medication Request 08/10/2024 Anti-Coag Telephone Call [facility], [address] [address] Taisha Krishnan, RN Anticoagulation (protime) 07/15/2024 Anti-Coag Telephone Call [facility], [address] [address] Taisha Krishnan RN Anticoagulation (protime) from Last 3 Months Immunizations Name Administration Dates Next Due Arexvy Respiratory Syncytial Virus (RSV, adjuvanted) 0.5 mL, PF 05/06/2023 FLUAD (IIV, Trivalent, 0.5 M L Pre-filled Syringe) 04/14/2024 Fluzone High Dose (IIV, triv alent, 0.5mL) 04/16/2018,04/17/2017 Fluzone High Dose - >Age 65 (Prefilled Syringe) 04/04/2023,04/15/2022,04/16/2021,2019,04/16/2018,04/17/2017 Influenza (Generic) 04/19/2019 Influenza Adult (Generic) 04/04/2023,01/2019,04/17/2017,2013,05/20/2013,05/25/2012 PFIZER COVID-19 (ORIGINAL FORMULATION, PURPLE CAP) mRNA, LNP-S, PF, 30 MCG/0.3 ML DOSE 09/23/2020,08/26/2020 Pneumococcal (Pneumovax 23) 04/16/2018 Pneumococcal (Prevnar 20) 04/15/2022 Family History Medical History Relation Comments Hypertension Father Kidney Disease Father acute Hypertension Mother Stroke Mother Diabetes Sister Relation Status Comments Daughter Alive Father (Age 83) Mother (Age 95) Other Alive Sister Alive Son 1 Alive Son 2 Alive Social History Tobacco Use Types Packs/Day Years Used Date Smoking Tobacco: Former Cigarettes 0.3 20 1 980 - 1999 Cigars Smokeless Tobacco: Never Tobacco Cessation:Counseling Given: Not Answered Comments:Former, Quit 1999 Alcohol Use Standard Drinks/Week Comments Yes 0 (1 standard drink = 0.6 oz pur e alcohol) 1 drinks/day (rahul) AUDIT-C Answer Date Recorded Frequency of Alcohol Consumption Not on file 12/04/2018 Average Number of Drinks 1 or 2 019 Frequency of Binge Drinking Not on file 11/12 PHQ-2 Answer Date Recorded Patient Health Questionnaire-2 Score 0 10/07/2024 Comments No Sex and Gender Information Value Date Recorded Sex Assigned at Female 10/07/2024 10:44 AM CDT Legal Sex Female 8:31 PM CDT Gender Identity Female 10/07/2024 10:44 AM CDT Sexual Orientation Not on file Last Filed Vital Signs Vital Sign Reading Time Taken Comments Blood Pressure 120/86 10/07/2024 10:45 AM CDT Pulse 78 10/07/2024 10:45 AM CDT Temperature 36.1 C (97 F) 10/07/2024 10:45 AM CDT Respiratory Rate 16 10/07/2024 10:45 AM CDT Oxygen Saturation 98% 10/07/2024 10:45 AM CDT Inhaled Oxygen Concentration - - Weight 76.7 kg (169 lb) 10/07/2024 10:45 AM CDT Height 160 cm (5' 3 ) 10/07/2024 10:45 AM CDT Body Mass Index 29.94 10/07/2024 10:45 AM CDT Plan of Treatment Health Maintenance Due Date Last Done Comments Annual Medicare Wellness Visit 2005 COVID-19 Vaccine ( season) 2025 03/12/2024, 11/26/2023, 04/04/2023, Additional history exists Postponed from 09/10/2024 (Patient Refused) Zoster Vaccines (1 of 2) 10/07/2025 Pos tponed from 1990 (Going to Outside Clinic) DTaP, Tdap and Td Vaccines (1 - Tdap) 08/09/2028 Postponed from 1959 (Per Provider Recommendation) Dexa Scan (General) Completed 03/20/2021 Pneumococcal Vaccine: 65+ Years Completed 04/15/2022, 04/16/2018 RSV Immunization or 60+ Years Completed 05/06/2023 PHQ-2 (Physician [place]) Completed 10/07/2024 Meningococcal B Vaccine Aged Out No l onger eligible based on patient's age to complete this topic Meningococcal Vaccine Aged Out No bruno anitra eligible based on patient's age to complete this topic RSV Immunizations Under 20 Months Aged Out No longer eligible based on patient's age to complete this topic Medical Devices Implanted Type Area Probation Counselor Device Identifier Shelf Expiration Date Model / Serial / Lot Cup Acetabular Depuy 52mm - [id number] Implanted:Qt y: 1 on 01/17/2022 by Kalia Davis MD at [facility] Hip Components Right: Acetabulum DEPUY [id number] 11/11/2031 [id number] / / [id number] Liner Depuy Acet Altrx Neut 36x52 - [id number] Implanted:Qt y: 1 on 01/17/2022 by Kalia Davis MD at [facility] Hip Components Right: Acetabulum DEPUY [id number] 11/10/2026 [id number] / / [id number] Stem Femoral Actis 107mm Collar Duofix 6 06/26 Standard Offset Taper Hip Sterile - [id number] Implanted:Qt y: 1 on 01/17/2022 by Kalia Davis MD at [facility] Hip Components Right: Femur DEPUY [id number] 12/12/2031 [id number] / / [id number] Head Depuy Femoral Delta 36mm +1.5 - [id number] Implanted:Qt y: 1 on 01/17/2022 by Kalia Davis MD at [facility] Hip Components Right: Femur DEPUY [id number] 11/10/2026 [id number] / / [id number] Marlow Cancellous Bone Screw Implanted:Qt y: 1 on 01/17/2022 by Kalia Davis MD at [facility] Screw Right: Hip DEPUY SYNTHES 08/13/2031 12-17-20-5 00 / / [id number] Marlow Cancellous Bone Screw Implanted:Qt y: 1 on 01/17/2022 by Kalia Davis MD at [facility] Screw Right: Hip DEPUY SYNTHES 08/13/2031 0 / / [id number] Procedures Procedure Name Priority Date/Time Associated Diagnosis Comments MG/PCCL UDS W CONF Routine 10/07/2024 10 :25 AM CDT Encounter for long-term (current) drug use OUTSIDE PT/INR (SCAN ORDER) 09/21/2024 PROTIME (OUTSIDE LAB) Routine 09/21/2024 OUTSIDE PT/INR (SCAN ORDER) 08/31/2024 PT/INR (OUTSIDE LAB) Routine 08/31/2024 PT/INR (OUTSIDE LAB) Routine 08/10/2024 BONE DENSITY/DEXA Routine 03/20/2021 12: 00 AM CDT Osteopenia, unspecified location Postmenopausal from Last 3 Months or Most Recently Relevant to Health Maintenance Results * (ABNORMAL) MG/PCCL UDS W CONF (10/07/2024 10:25 AM CDT) [facility] RESULT SUMMARY [employer] [facility] Comment: Prescribed Prescribed Not Prescribed Consistent Inconsistent Inconsistent Hydrocodone PRESCRIBED DRUG 1 (U) Hydrocodone [facility] RACHEL FENTANYL SCREEN (U) NEGATIVE <0.5 ng/mL [facility] [employer] [place] MORPHINE (U) NEGATIVE <10 ng/mL [facility] [place] DESMETHYLTRAMADOL (U) NEGATIVE <100 ng/mL [facility] [place] TRAMADOL (U) NEGATIVE <100 ng/mL [facility] [place] TRAMADOL COMMENTS [facility] [place] Comment:See LDT Notes AMPHETAMINES PM NEGATIVE <500 ng/mL [facility] [place] BARBITURATES PM (U) NEGATIVE <300 ng/mL [facility] [place] BENZODIAZEPINES PM (U) NEGATIVE <100 ng/mL [facility] [place] COCAINE METABOLITE PM (U) NEGATIVE <150 ng/mL [facility] [place] MARIJUANA METABOLITE PM (U) NEGATIVE <20 ng/mL [facility] METHADONE PM (U) NEGATIVE <100 ng/mL [facility] OPIATES PM (U) POSITIVE(A) <100 ng/mL [facility] [place] CODEINE PM (U) NEGATIVE <50 ng/mL [facility] HYDROCODONE PM (U) 1,426(H) <50 ng/mL [facility] HYDROCODONE PM MEDMATCH (U) CONSISTENT [facility] HYDROMORPHONE PM (U) NEGATIVE <50 ng/mL [facility] MORPHINE PM (U) NEGATIVE <50 ng/mL [facility] NORHYDROCODONE PM (U) 1,491(H) <50 ng/mL [facility] [place] NORHYDROCODONE PM MM (U) CONSISTENT [facility] [place] [place] OPIATES COMMENTS [facility] Comment:See Opiates Notes, L DT Notes OXYCODONE PM (U) NEGATIVE <100 ng/mL [facility] CREATININE RANDOM (U) 50.1 > or = 20.0 mg/dL [facility] pH PM (U) 6.8 4.5 - 9.0 [facility] [employer] [place] OXIDANT NEGATIVE <200 mcg/mL [facility] NOTE [facility] Comment: This drug testing is for medical treatment only. Analysis was performed as non-forensic testing and these results should be used only by healthcare providers to render diagnosis or treatment, or to monitor progress of medical conditions. Opiates Notes: Hydrocodone, Norhydrocodone detected is consistent with the use of the drug Hydrocodone. The metabolite Hydromorphone is not present at or above the cutoff. LDT Notes: Confirmation tests were developed and their analytical performance characteristics have been determined by [employer]. It has not been cleared or approved by the FDA. This assay has been validated pursuant to the CLIA regulations and is used for clinical purposes. medMATCH(R) enables providers to identify if drug use is consistent or inconsistent with a corresponding prescribed medication(s) list. Healthcare Providers needing Interpretation assistance, please contact us at [phone] ( ) M-F, 8am to 10pm EST URINE SPECIMEN / Unknown 10/07/2024 10:25 AM CDT 10/08/2024 1:09 AM CDT Narrative Resulting Agency Comment Performing Organization Information: Site ID: CB [facility] Address: [address] [place] [phone] Director: Rene Morris Site ID: [place] Name: [facility] Address: [address] [place] [phone] Director: Mumtaz Cash MD Fausto Arora DO URINE ORDERABLES Final R esult [facility] [employer] [facility] [id number] [place] [address] [employer] [place] [address] [place] [id number] * PROTIME (OUTSIDE LAB) (09/21/2024) PROTIME 30.2 INR 2.8 09/21/2024 us Default History Genericprovider LAB-OUTSIDE/ABST RACTED Final Result * OUTSIDE PT/INR (SCAN ORDER) (09/21/2024) Only the most recent of2 resultswithin the time period is included. 09/21/2024 us [facility] Scanned SCANNING Final Resu lt * PT/INR (OUTSIDE LAB) (08/31/2024) Only the most recent of2 resultswithin the time period is included. INR WHOLE BLOOD 3.00 08/31/2024 Default History Genericprovider LAB-OUTSIDE/ABST RACTED Final Result * BONE DENSITY/DEXA (03/20/2021 12:00 AM CDT) Anatomical Region Laterality Modality Bone Bone Density 03/20/2021 Fausto Arora DO DEXA Final Re sult from Last 3 Months or Most Recently Relevant to Health Maintenance Insurance MEDICARE [facility] Advance Directives * Full Code (Latest Code Status on File) Date Activated Date Inactivated Comments 01/22/2022 2:50 PM * Full Code Date Activated Date Inactivated Comments 01/17/2022 6:33 PM 01/21/2022 5:32 PM Care Teams News Reporter Relationship Specialty Start Date End Date Fausto Arora DO [facility] [place] [address] PCP - General FAMILY PRACTICE 11/09/18
[2024-10-13 15:08] LABS: Chloride Rand Ur 34 mmol/L (32-290); Chloride/Creatinine Rand Ur 53 (38-318); Creatinine Random Urine 64 mg/dL (20-275)
[2024-10-14 13:34] LABS: Osmolality, Urine 319 mOsm/kg (50-1200)
== END 2024-10-12 12:02 | disposition home or self-care (01) ==
PROVIDERS: PCP Student in an Organized Health Care Education/Training Program; Visit Provider Student in an Organized Health Care Education/Training Program
DX: E87.1 Hypo-osmolality and hyponatremia (principal); I10 Essential (primary) hypertension; E78.5 Hyperlipidemia, unspecified
CPT/HCPCS: 82436; 82570; 83935

== ENCOUNTER 2024-10-14 07:59 | Outpatient (RCR) | payer MEDICARE, OTHER, SELFPAY ==
--- OUTSIDE RECORDS SUMMARY | 2024-10-14 09:28 | XMS_ITS | Encounter Summary ---
Author Organization [facility] Address [facility] [place] [address] Care Team Providers Care Solar Lab Technician Name Role Phone Fausto Arora DO Primary Care Provider + Encounter Details Date Type Department Care Team (Late st Contact Info) Description 05/28/2023 Abstract [facility] [address] [address] Jocelyn Gonzalez MA Social History Tobacco Use [...] documented as of this encounter Care Teams Solar Lab Technician Relationship Specialty Start Date End Date Fausto Arora DO [address] [place] [phone] PCP - General FAMILY PRACTICE 11/09/18 documented as of this encounter
--- OUTSIDE RECORDS SUMMARY | 2024-10-14 09:28 | XMS_ITS | Clinical Summary ---
Author Organization [facility] Address [address] [place] [address] Care Team Providers Care Brim Welt Sewing Machine Operator Name Role Phone Unavailable Primary Care Provider Unavailabl e Source Comments [facility],non-owned Affiliates and Associated Physician Practices is amultiple site organization consisting of ambulatory clinics and hospital sitesin [place], [place], [place] and [place]. This disclosure is being madepursuant to the Care Everywhere program and may not contain all information available regarding this patient. Last updated 18.[facility] Immunizations Name Administration Dates Next Due INFLUENZA [...]
--- OUTSIDE RECORDS SUMMARY | 2024-10-14 09:28 | XMS_ITS | Encounter Summary ---
Author Organization [facility] Address [facility] [place] [address] Care Team Providers Care Thermostatic Controls Supervisor Name Role Phone Fausto Arora DO Primary Care Provider + Encounter Details Date Type Department Care Team (Late st Contact Info) Description 08/19/2023 Abstract [facility] [address] Jocelyn Gonzalez MA Social History Tobacco Use [...] * PROTIME (OUTSIDE LAB) (05/19/2024) Pathologist [facility] PROTIME 27.6 INR 2.5 05/19/2024 us Default History Genericprovider LAB-OUTSIDE/ABST RACTED Final Result * [facility]17[facility]2024[facility]leted 02/17/2024 us Default History Genericprovider LAB-OUTSIDE/ABST RACTED Edited Result - Final * PROTIME (OUTSIDE LAB) (09/16/2023) Pathologist [facility] PROTIME 17.9 INR 1.4 09/16/2023 us Default History Genericprovider LAB-OUTSIDE/ABST RACTED Final Result * PROTIME (OUTSIDE LAB) (09/02/2023) Pathologist [facility] PROTIME 23.9 INR 2.0 09/02/2023 us Default History Genericprovider LAB-OUTSIDE/ABST RACTED Final Result * PROTIME (OUTSIDE LAB) (08/19/2023) Pathologist [facility] PROTIME 15.7 INR 1.2 08/19/2023 us Default History Genericprovider LAB-OUTSIDE/ABST RACTED Final Result documented in this encounter Visit Diagnoses Not on filedocumented in this encounter Additional Health Concerns Assessment Noted Time PHQ-9 Depression Total Score: 2 09/28/19 22 11:41 AM CDT documented as of this encounter Care Teams Thermostatic Controls Supervisor Relationship Specialty Start Date End Date Fausto Arora DO [address] [place] [id number] PCP - General FAMILY PRACTICE 11/09/18 documented as of this encounter
--- OUTSIDE RECORDS SUMMARY | 2024-10-14 09:28 | XMS_ITS | Clinical Summary ---
Author Organization [facility] Address [address] [place] [address] Care Team Providers Care Programmer Engineering And Scientific Name Role Phone Fausto Arora DO Primary [...] Noted Date Diagnosed Date Paroxysmal atrial fibrillation ([facility]/HCC [facility]/HCC) 01/21/2022 Hip osteoarthritis 01/18/2022 Status post total [...] syndrome) Hypertension Hyperlipidemia Depression UC (ulcerative colitis) ([facility]) Anxiety Encounters Date Type Department Care Team Description 10/12/2024 Anti-Coag Telephone Call [facility] [address] Taisha Krishnan RN Anticoagulation (protime) 10/07/2024 10:20 AM CDT Office Visit [facility] Family & Internal [address] [phone] Fausto Arora, DO Medication Management (The patient presents for medication follow up. /Calmoseptine- Patient states she uses this for itching under her breasts ); Leg Pain (The patient states she has noticed tingling in her legs. Mainly her left leg ) 10/07/2024 Travel 09/29/2024 Patient Outreach [facility] Internal [address] [phone] Fausto Arora, DO Pre-visit Gap Closure 09/24/2024 Telephone [facility] Internal [address] [phone] Fausto Arora, DO Lab Results 09/23/2024 Telephone [facility] [address] [phone] Fausto Arora, DO Refill Request 09/22/2024 Anti-Coag Telephone Call [facility], [address] [address] Taisha Krishnan RN Anticoagulation (protime) 09/21/2024 Scan HEALTH INFO SRVCS Scanned, Doc [facility] Lab (SCAN) 09/08/2024 Anti-Coag Telephone Call [facility], [address] [address] Anny Mendes RN Anticoagulation (INR) 08/31/2024 Scan HEALTH INFO SRVCS Scanned, Doc [facility] Lab (SCAN) 08/20/2024 Telephone [facility] Family & Internal Medicine [address] [phone] Fausto Arora, DO Medication Request 08/10/2024 [facility]ag [facility] [address] [address] Taisha Krishnan, RN Anticoagulation (protime) from Last 3 Months [...] or 60+ Years Completed 05/06/2023 PHQ-2 (Physician [place]) Completed 10/07/2024 Meningococcal B Vaccine Aged Out No l onger eligible based on patient's age to complete this topic Meningococcal Vaccine Aged Out No bruno anitra eligible based on patient's age to complete this topic RSV Immunizations Under 20 Months Aged Out No longer eligible based on patient's age to complete this topic Medical Devices Implanted Type Area Floor Molder Device Identifier Shelf Expiration Date Model / Serial / Lot Cup Acetabular Depuy 52mm - [id number] Implanted:Qt y: 1 on 01/17/2022 by Kalia Davis MD at [facility] Hip Components Right: Acetabulum DEPUY [id number] 11/11/2031 [id number] / / [id number] Liner Depuy Acet Altrx Neut 36x52 - [id number] Implanted:Qt y: 1 on 01/17/2022 by Kalia Davis MD at [facility] Hip Components Right: Acetabulum DEPUY [id number] 11/10/2026 [id number] / / [id number] Stem Femoral Actis 107mm Collar Duofix 6 06/26 Standard Offset Taper Hip Sterile - [id number] Implanted:Qt y: 1 on 01/17/2022 by Kalia Davis MD at [facility] Hip Components Right: Femur DEPUY [id number] 12/12/2031 [id number] / / [id number] Head Depuy Femoral Delta 36mm +1.5 - [id number] Implanted:Qt y: 1 on 01/17/2022 by Kalia Davis MD at [facility] Hip Components Right: Femur DEPUY [id number] 11/10/2026 [id number] / / [id number] [place] Cancellous Bone Screw Implanted:Qt y: 1 on 01/17/2022 by Kalia Davis MD at [facility] Screw Right: Hip DEPUY SYNTHES 08/13/2031 12-17-20-5 00 / / [id number] [place] Cancellous Bone Screw Implanted:Qt y: 1 on 01/17/2022 by Kalia Davis MD at [facility] Screw Right: Hip DEPUY SYNTHES 08/13/2031 0 / / [id number] Procedures Procedure Name Priority Date/Time Associated Diagnosis Comments PT/INR (OUTSIDE LAB) Routine 10/12/2024 MG/PCCL UDS W CONF Routine 10/07/2024 10 [...] Recently Relevant to Health Maintenance Results * PT/INR (OUTSIDE LAB) (10/12/2024) Only the most recent of3 resultswithin the time period is included. INR WHOLE BLOOD 2.50 10/12/2024 us Default History Genericprovider LAB-OUTSIDE/ABST RACTED Final Result * (ABNORMAL) MG/PCCL UDS W CONF (10/07/2024 10:25 AM CDT) RESULT SUMMARY [facility] Comment: Prescribed Prescribed Not Prescribed Consistent Inconsistent Inconsistent Hydrocodone PRESCRIBED DRUG 1 (U) Hydrocodone [facility] FENTANYL SCREEN (U) NEGATIVE <0.5 ng/mL [facility] [place] MORPHINE (U) NEGATIVE <10 ng/mL [facility] [place] DESMETHYLTRAMADOL (U) NEGATIVE <100 ng/mL [facility] [place] TRAMADOL (U) NEGATIVE <100 ng/mL [facility] [place] TRAMADOL COMMENTS [facility] [place] [place] Comment:See LDT Notes AMPHETAMINES PM NEGATIVE <500 ng/mL [facility] [place] BARBITURATES PM (U) NEGATIVE <300 ng/mL [facility] [place] BENZODIAZEPINES PM (U) NEGATIVE <100 ng/mL [facility] [place] COCAINE METABOLITE PM (U) NEGATIVE <150 ng/mL [facility] [place] MARIJUANA METABOLITE PM (U) NEGATIVE <20 ng/mL [facility] [place] METHADONE PM (U) NEGATIVE <100 ng/mL [facility] [place] OPIATES PM (U) POSITIVE(A) <100 ng/mL [facility] [place] CODEINE PM (U) NEGATIVE <50 ng/mL [facility] [place] HYDROCODONE PM (U) 1,426(H) <50 ng/mL [facility] [place] HYDROCODONE PM MEDMATCH (U) CONSISTENT [facility] [place] HYDROMORPHONE PM (U) NEGATIVE <50 ng/mL [facility] [place] MORPHINE PM (U) NEGATIVE <50 ng/mL [facility] [place] NORHYDROCODONE PM (U) 1,491(H) <50 ng/mL [facility] [place] NORHYDROCODONE PM MM (U) CONSISTENT [facility] [place] OPIATES COMMENTS [facility] [place] Comment:See Opiates Notes, L DT Notes OXYCODONE PM (U) NEGATIVE <100 ng/mL [facility] [place] CREATININE RANDOM (U) 50.1 > or = 20.0 mg/dL [facility] [place] pH PM (U) 6.8 4.5 - 9.0 [employer] [place] OXIDANT NEGATIVE <200 mcg/mL [facility] [place] NOTE [facility] Comment: This drug testing is for [...] analytical performance characteristics have been determined by [employer]. It has not been cleared or approved by the FDA. This assay has been validated pursuant to the CLIA regulations and is used for clinical purposes. medMATCH(R) enables providers to identify if drug use is consistent or inconsistent with a corresponding prescribed medication(s) list. Healthcare Providers needing Interpretation assistance, please contact us at [phone] ( ) M-F, 8am to 10pm EST URINE SPECIMEN / Unknown 10/07/2024 10:25 AM CDT 10/08/2024 1:09 AM CDT Narrative Resulting Agency Comment Performing Organization Information: Site ID: [id number] [facility] Address: [address] [place] [address] Director: Rene Morris Site ID: [id number] Name: [facility] Address: [address] [facility] [place] [address] Director: Mumtaz Cash MD us Fausto Arora DO URINE ORDERABLES Final R esult [facility] [address] [place] [place], [place] [address] [place] [address] [place] [address] * PROTIME (OUTSIDE LAB) (09/21/2024) PROTIME 30.2 INR 2.8 09/21/2024 us Default History Genericprovider LAB-OUTSIDE/ABST RACTED Final Result * OUTSIDE PT/INR (SCAN ORDER) (09/21/2024) Only the most recent of2 resultswithin the time period is included. 09/21/2024 us Doc Med Group Scanned SCANNING Final Resu lt * BONE DENSITY/DEXA (03/20/2021 12:00 AM CDT) Anatomical Region Laterality Modality Bone Bone Density 03/20/2021 us Fausto Arora DO DEXA Final Re sult from Last 3 Months or Most Recently Relevant to Health Maintenance Insurance MEDICARE [facility] Advance Directives * Full Code (Latest Code Status on File) Date Activated Date Inactivated Comments 01/22/2022 2:50 PM * Full Code Date Activated Date Inactivated Comments 01/17/2022 6:33 PM 01/21/2022 5:32 PM Care Teams Programmer Engineering And Scientific Relationship Specialty Start Date End Date Fausto Arora DO [address] [place] [address] PCP - General FAMILY PRACTICE 11/09/18
[2024-10-14 10:27] LABS: Basophils Percent Auto 0.3 % (0.2-1.2); Eosinophils Percent Auto 0.3 % (0-4.4); Hematocrit 36.3 % (37.0-47.0); Hemoglobin 11.7 g/dL (12.0-15.0); Immature Granulocyte Absolute 0.04 K/mm3 (0.00-0.031); Immature Granulocyte Percent A 0.5 % (0-0.5); Lymphocytes Absolute Auto 1.18 K/mm3 (0.9-3.2); Lymphocytes Percent Auto 15.6 % (18.3-44.2); Mean Corpuscular HGB Conc 32.2 g/dl (32-36); Mean Corpuscular Hemoglobin 30.2 pg (26-34); Mean Corpuscular Volume 93.6 fl (80-100); Mean Platelet Volume 9.3 fl (7.4-10.4); Monocytes Absolute Auto 0.5 K/mm3 (0.1-0.6); Monocytes Percent Auto 6.4 % (2.6-8.5); Neutrophils Absolute Auto 5.8 K/mm3 (1.3-6.7); Neutrophils Percent Auto 76.9 % (45.5-73.1); Platelet Count Result 380 k/mm3 (150-375); Red Blood Count 3.88 M/mm3 (4.2-5.4); White Blood Count 7.6 K/mm3 (4.5-10.0)
[2024-10-14 11:55] LABS: Alanine Aminotransferase 21 U/L (6-35); Albumin Level 4.2 g/dL (3.5-5.1); Alkaline Phosphatase 110 U/L (38-126); Anion Gap 10 mmol/L (4-12); Aspartate Amino Transferase 28 U/L (14-36); Blood Urea Nitrogen 11 mg/dL (7-17); Calcium 9.1 mg/dL (8.4-10.2); Carbon Dioxide 27 mmol/L (22-30); Chloride 98 mmol/L (98-107); Cholesterol 159 mg/dL (0-200); Estimated Glomerular Filt Rate > 60; Glucose 114 mg/dL (65-110); HDL Direct 65 mg/dL; Potassium 4.2 mmol/L (3.4-5.0); Sodium 135 mmol/L (137-145); Triglycerides 78 mg/dL (<150)
[2024-10-14 12:06] LABS: LDL Cholesterol Direct 75 mg/dL
[2024-10-14 19:58] LABS: Potassium Urine Random 25.6 meq/L; Sodium Urine Random 37 meq/L
[2024-10-14 20:01] LABS: Creatinine Urine 57.2 mg/dL
[2024-10-15 10:26] LABS: Creatinine 24 Hour Urine 0.5 gm/24 (0.8-1.8); Potassium 24 Hour Urine 25.6 mmol/24 (25-125); Sodium 24 Hour Urine 37 mmol/day (40-220); Total Volume 24 Hour Urine 1000 ml; Total Volume 24 Hour Urine 1004 ml
--- OUTSIDE RECORDS SUMMARY | 2024-10-18 06:44 | XMS_ITS | Encounter Summary ---
Author Organization [facility] Address [facility] [place] [address] Care Team Providers Care Advertising Associate Name Role Phone Fausto Arora DO Primary Care Provider + Encounter Details Date Type Department Care Team (Late st Contact Info) Description 05/28/2023 Abstract [facility] [facility] [address] [address] Jocelyn Gonzalez MA Social History Tobacco Use [...] documented as of this encounter Care Teams Advertising Associate Relationship Specialty Start Date End Date Fausto Arora DO [address] [place] [address] PCP - General FAMILY PRACTICE 11/09/18 documented as of this encounter
--- OUTSIDE RECORDS SUMMARY | 2024-10-18 06:44 | XMS_ITS | Clinical Summary ---
Author Organization [facility] Address [address] [place] [address] Care Team Providers Care Receiving Tank Operator Name Role Phone Fausto Arora DO Primary Care Provider + Allergies Active Allergy Reactions Criticality Noted Date Comments Iodine Anaphylaxis High 12/04/2018 Oxycodone Unknown,Nausea and Vomiting High 10/05/2020 Believes she was just given too much. Tetracaine Palpitations High 03/20/2023 Medications dicyclomine 10 MG capsuleIndications :Irritable Bowel Syndrome Take 1 capsule (10 mg total) by mouth 3 (three) times daily as needed. Indications: Irritable Bowel Syndrome 5 11/06/19 19 Active budesonide EC 3 MG capsuleIndications :Inflammatory bowel disease (IBD) Take 1 capsule (3 mg total) by mouth daily. Indications: Inflammatory bowel disease (IBD) 06/23/20 20 Active Misc. Devices (ROLLATOR ULTRA-LIGHT) MiscIndications:Pr imary osteoarthritis of right hip,Spinal stenosis of lumbar region, unspecified whether neurogenic claudication present,Right foot pain Use daily 1 each 09/28/19 22 Active Multiple Vitamins-Iron (DAILY VITAMIN/IRON) TabIndications:Par oxysmal atrial fibrillation (CMS/HCC HHS/HCC) Take 1 tablet by mouth daily. 30 tablet 01/22/20 22 Active Additional Information Patient taking differently:1 tablet Oral Daily,Indications: Nutritional Support, Reported on 10/07/2024 PANTOPRAZOLE EC 40 MG tabletIndications: Paroxysmal atrial fibrillation (CMS/HCC HHS/HCC) TAKE 1 TABLET(40 MG) BY MOUTH DAILY 90 tablet 1 01/22/20 22 Active amoxicillin (AMOXIL) 500 MG capsule Take 4 capsules (2,000 mg total) by mouth once. 02/03/20 24 Active metoprolol succinate ER (TOPROL-XL) 25 MG 24 hr tablet Take 0.5 tablets (12.5 mg total) by mouth daily. 45 tablet 1 03/31/20 24 Active meclizine (ANTIVERT) 25 MG tabletIndications: Dizziness Take 1 tablet (25 mg total) by mouth 3 (three) times daily as needed. 30 tablet 06/14/20 24 Active warfarin (COUMADIN) 2.5 MG tablet TAKE 1 TABLET (2.5MG) BY MOUTH ON FRIDAY EVENINGS, TAKE 2 TABLETS (5MG) ALL THE REST OF THE EVENINGS. 156 tablet 1 07/15/19 25 Active Additional Information Patient taking differently: TAKE 1 TABLET (2.5MG) BY MOUTH ON FRIDAY AND FRIDAY EVENINGS, TAKE 2 TABLETS (5MG) ALL THE REST OF THE EVENINGS., Reported on 10/07/2024 atorvastatin (LIPITOR) 10 MG tabletIndications: Hyperlipidemia TAKE 1 TABLET NIGHTLY AT BEDTIME 90 tablet 08/12/19 25 Active FLUoxetine (PROZAC) 10 MG capsuleIndications :Current mild episode of major depressive disorder without prior episode TAKE 1 CAPSULE BY MOUTH EVERY DAY 90 capsule 08/18/19 25 Active valsartan (DIOVAN) 160 MG tabletIndications: Essential hypertension TAKE 1 TABLET(160 MG) BY MOUTH DAILY 90 tablet 09/16/19 25 Active HYDROcodone-acetam inophen (NORCO) 10-325 MG tabletIndications: Chronic Pain Take 1 tablet by mouth every 6 (six) hours as needed for Pain. Indications: Chronic Pain 90 tablet 09/24/19 25 Active Menthol-Zinc Oxide (CALMOSEPTINE EX) Ac tive HYDROcodone-acetam inophen (NORCO) 10-325 MG tabletIndications: Chronic Pain Take 1 tablet by mouth every 6 (six) hours as needed for Pain. Indications: Chronic Pain 90 tablet 08/24/19 25 025 Discontin ued(Reord er) Active Problems Problem Noted Date Diagnosed Date Paroxysmal atrial fibrillation ([facility]/HCC HHS/HCC) 01/21/2022 Hip osteoarthritis 01/18/2022 Status post total [...] syndrome) Hypertension Hyperlipidemia Depression UC (ulcerative colitis) ([facility]) Anxiety Encounters Date Type Department Care Team Description 10/12/2024 Anti-Coag Telephone Call [facility] THREE [address] [address] Taisha Krishnan RN Anticoagulation (protime) 10/07/2024 10:20 AM CDT Office Visit [facility] [address] [phone] Fausto Arora, DO Medication Management (The patient presents for medication follow up. /Calmoseptine- Patient states she uses this for itching under her breasts ); Leg Pain (The patient states she has noticed tingling in her legs. Mainly her left leg ) 10/07/2024 Travel 09/29/2024 Patient Outreach [facility] [address] [phone] Fausto Arora, DO Pre-visit Gap Closure 09/24/[address] [address] Fausto Arora, DO Lab Results 09/23/[address] [phone] Fausto Arora, DO Refill Request 09/22/2024 Anti-Coag Telephone Call [facility], [address] [address] Tasiha Krishnan RN Anticoagulation (protime) 09/21/2024 Scan HEALTH INFO SRVCS Scanned, Doc Med Group Lab (SCAN) 09/08/2024 Anti-Coag Telephone Call [facility], [address] [address] Anny Mendes RN Anticoagulation (INR) 08/31/2024 Scan [facility] INFO SRVCS Scanned, Doc Med Group Lab (SCAN) 08/20/2024 Telephone [facility] Family & Internal Medicine [address] [phone] Fausto Arora DO Medication Request 08/10/2024 Anti-Coag Telephone Call [facility], [address] [address] Taisha Krishnan, RN Anticoagulation (protime) from Last [...] Former Cigarettes 0.3 20 1 980 - 2000 Cigars Smokeless Tobacco: Never Tobacco Cessation:Counseling Given: [...] or 60+ Years Completed 05/06/2023 PHQ-2 (Physician [place]) Completed 10/07/2024 Meningococcal B Vaccine Aged Out No l onger eligible based on patient's age to complete this topic Meningococcal Vaccine Aged Out No bruno anitra eligible based on patient's age to complete this topic RSV Immunizations Under 20 Months Aged Out No longer eligible based on patient's age to complete this topic Medical Devices Implanted Type Area Mixed Livestock Farmer Device Identifier Shelf Expiration Date Model / Serial / Lot Cup Acetabular Depuy 52mm - [id number] Implanted:Qt y: 1 on 01/17/2022 by Kalia Davis MD at [facility] Hip Components Right: Acetabulum DEPUY [id number] 11/11/2031 [id number] / / [id number] Liner Depuy Acet Altrx Neut 36x52 - [id number] Implanted:Qt y: 1 on 01/17/2022 by Kalia Davis MD at [facility] Hip Components Right: Acetabulum DEPUY [id number] 11/10/2026 [id number] / / [id number] Stem Femoral Actis 107mm Collar Duofix 6 06/26 Standard Offset Taper Hip Sterile - [id number] Implanted:Qt y: 1 on 01/17/2022 by Kalia Davis MD at [facility] Hip Components Right: Femur DEPUY [id number] 12/12/2031 [id number] / / [id number] Head Depuy Femoral Delta 36mm +1.5 - [id number] Implanted:Qt y: 1 on 01/17/2022 by Kalia Davis MD at [facility] Hip Components Right: Femur DEPUY [id number] 11/10/2026 [id number] / / [id number] [place] Cancellous Bone Screw Implanted:Qt y: 1 on 01/17/2022 by Kalia Davis MD at [facility] [place] Screw Right: Hip DEPUY SYNTHES 08/13/2031 12-17-20-5 00 / / [id number] [place] Cancellous Bone Screw Implanted:Qt y: 1 on 01/17/2022 by Kalia Davis MD at [facility] [place] Screw Right: Hip DEPUY SYNTHES 08/13/2031 0 / / [id number] Procedures Procedure Name Priority Date/Time Associated Diagnosis [...] 10:25 AM CDT) RESULT SUMMARY [facility] Comment: Prescribed Prescribed Not Prescribed Consistent Inconsistent Inconsistent Hydrocodone PRESCRIBED DRUG 1 (U) Hydrocodone [facility] FENTANYL SCREEN (U) NEGATIVE <0.5 ng/mL [facility] [place] MORPHINE (U) NEGATIVE <10 ng/mL [facility] [place] DESMETHYLTRAMADOL (U) NEGATIVE <100 ng/mL [facility] [place] TRAMADOL (U) NEGATIVE <100 ng/mL [facility] [place] TRAMADOL COMMENTS [facility] [place] Comment:See LDT Notes AMPHETAMINES PM NEGATIVE <500 ng/mL [facility] [place] BARBITURATES PM (U) NEGATIVE <300 ng/mL [facility] [place] BENZODIAZEPINES PM (U) NEGATIVE <100 ng/mL [facility] [place] COCAINE METABOLITE PM (U) NEGATIVE <150 ng/mL [facility] [place] MARIJUANA METABOLITE PM (U) NEGATIVE <20 ng/mL [facility] [place] METHADONE PM (U) NEGATIVE <100 ng/mL [facility] [place] OPIATES PM (U) POSITIVE(A) <100 ng/mL [facility] [place] CODEINE PM (U) NEGATIVE <50 ng/mL [facility] [place] HYDROCODONE PM (U) 1,426(H) <50 ng/mL [facility] [place] HYDROCODONE PM MEDMATCH (U) CONSISTENT [facility] [place] HYDROMORPHONE PM (U) NEGATIVE <50 ng/mL [facility] [place] MORPHINE PM (U) NEGATIVE <50 ng/mL [facility] [place] NORHYDROCODONE PM (U) 1,491(H) <50 ng/mL [facility] [place] NORHYDROCODONE PM MM (U) CONSISTENT [facility] [place] OPIATES COMMENTS [facility] [place] Comment:See Opiates Notes, L DT Notes OXYCODONE PM (U) NEGATIVE <100 ng/mL [facility] [place] CREATININE RANDOM (U) 50.1 > or = 20.0 mg/dL [facility] [place] pH PM (U) 6.8 4.5 - 9.0 [facility] [place] OXIDANT NEGATIVE <200 mcg/mL [facility] [place] NOTE [facility] Comment: This drug testing is for [...] analytical performance characteristics have been determined by [facility]. It has not been cleared or approved by the FDA. This assay has been validated pursuant to the CLIA regulations and is used for clinical purposes. medMATCH(R) enables providers to identify if drug use is consistent or inconsistent with a corresponding prescribed medication(s) list. Healthcare Providers needing Interpretation assistance, please contact us at [phone] ( ) M-F, 8am to 10pm EST URINE SPECIMEN / Unknown 10/07/2024 10:25 AM CDT 10/08/2024 1:09 AM CDT Narrative Resulting Agency Comment Performing Organization Information: Site ID: [facility] Address: [address] [place] [phone] Director: Rene Morris Site ID: [id number] Name: [facility] Address: [id number] [place] [phone] Director: Mumtaz Cash MD Fausto Arora DO URINE ORDERABLES Final R esult [facility] [place] [facility] [id number] [place] [id number] [place] [address] [place] [address] * PROTIME (OUTSIDE LAB) (09/21/2024) PROTIME 30.2 [...] Recently Relevant to Health Maintenance Insurance MEDICARE [facility] Advance Directives * Full Code (Latest Code Status on File) Date Activated Date Inactivated Comments 01/22/2022 2:50 PM * Full Code Date Activated Date Inactivated Comments 01/17/2022 6:33 PM 01/21/2022 5:32 PM Care Teams Receiving Tank Operator Relationship Specialty Start Date End Date Fausto Arora DO [address] [place] [phone] PCP - General FAMILY PRACTICE 11/09/18
--- OUTSIDE RECORDS SUMMARY | 2024-10-18 06:44 | XMS_ITS | Clinical Summary ---
Author Organization [facility] Address [address] [place] [address] Care Team Providers Care Certified Nurse Midwife Name Role Phone Unavailable Primary Care Provider Unavailabl e Source Comments [facility],non-owned Affiliates and Associated Physician Practices is amultiple site organization consisting of ambulatory clinics and hospital sitesin [place], [place], [place] and [place]. This disclosure is being madepursuant to the Care Everywhere program and may not contain all information available regarding this patient. Last updated 18.[facility] Immunizations Name Administration Dates Next Due INFLUENZA [...] VACCINE ( - 2023-2 5 season) 2024 DEPRESSION SCREENING 07/14/2024 INFLUENZA VACCINE (Season Ended) 2025 04/17/20 17 HEPATITIS B VACCINE Aged Out No longe [...]
--- OUTSIDE RECORDS SUMMARY | 2024-10-18 06:44 | XMS_ITS | Encounter Summary ---
Author Organization [facility] Address [facility] [place] [address] Care Team Providers Care Computer Meteorologist Name Role Phone Fausto Arora DO Primary Care Provider + Encounter Details Date Type Department Care Team (Late st Contact Info) Description 08/19/2023 Abstract [facility] [address] Jocelyn Gonzalez MA Social History Tobacco Use [...] Result * PROTIME (OUTSIDE LAB) (05/19/2024) Pathologist [facility] PROTIME 27.6 INR 2.5 05/19/2024 us Default History Genericprovider LAB-OUTSIDE/ABST RACTED Final Result * [facility] ([facility]IDE LAB) (02/17/2024[facility],deleted 02/17/2024 us Default History Genericprovider LAB-OUTSIDE/ABST RACTED Edited Result - Final * PROTIME (OUTSIDE LAB) (09/16/2023) Pathologist [facility] PROTIME 17.9 INR 1.4 09/16/2023 us Default History Genericprovider LAB-OUTSIDE/ABST RACTED Final Result * PROTIME (OUTSIDE LAB) (09/02/2023) Pathologist [facility] PROTIME 23.9 INR 2.0 09/02/2023 us Default History Genericprovider LAB-OUTSIDE/ABST RACTED Final Result * PROTIME (OUTSIDE LAB) (08/19/2023) Pathologist [facility] PROTIME 15.7 INR 1.2 08/19/2023 us Default History Genericprovider LAB-OUTSIDE/ABST RACTED Final Result documented in this encounter Visit Diagnoses Not on filedocumented in this encounter Additional Health Concerns Assessment Noted Time PHQ-9 Depression Total Score: 2 09/28/19 22 11:41 AM CDT documented as of this encounter Care Teams Computer Meteorologist Relationship Specialty Start Date End Date Fausto Arora DO [address] [place] [phone] PCP - General FAMILY PRACTICE 11/09/18 documented as of this encounter
== END 2024-10-14 08:00 | disposition home or self-care (01) ==
LOC: ANHGOSHLAB 07:59
PROVIDERS: PCP Student in an Organized Health Care Education/Training Program; Visit Provider Student in an Organized Health Care Education/Training Program
DX: E87.1 Hypo-osmolality and hyponatremia (principal); I10 Essential (primary) hypertension; E78.5 Hyperlipidemia, unspecified
CPT/HCPCS: 36415; 80053; 80061; 81050; 82570; 83930; 84133; 84300; 84443; 85025

== ENCOUNTER 2024-12-07 10:13 | Outpatient (RCR) | payer MEDICARE, OTHER, SELFPAY ==
[2024-09-21 13:46] LABS: INR 2.8; Prothrombin Time 30.2 Seconds (11.1-14.7)
[2024-10-12 14:24] LABS: INR 2.5; Prothrombin Time 27.2 Seconds (11.1-14.7)
[2024-11-08 11:57] LABS: INR 2.5; Prothrombin Time 27.2 Seconds (11.1-14.7)
[2024-12-07 11:12] LABS: INR 2.4
== END 2024-12-20 23:59 | disposition home or self-care (01) ==
LOC: ANHGOSHLAB 10:13
PROVIDERS: PCP Student in an Organized Health Care Education/Training Program; Visit Provider Internal Medicine Cardiovascular Disease
DX: Z51.81 Encounter for therapeutic drug level monitoring (principal); Z79.01 Long term (current) use of anticoagulants; I48.0 Paroxysmal atrial fibrillation
CPT/HCPCS: 36415; 82436; 82570; 83935; 85610

== ENCOUNTER 2025-03-22 10:43 | Outpatient (RCR) | payer MEDICARE, OTHER, SELFPAY ==
[2025-01-04 13:17] LABS: INR 2.7; Prothrombin Time 27.9 Seconds (11.1-14.7)
[2025-01-25 15:10] LABS: INR 2.8; Prothrombin Time 28.9 Seconds (11.1-14.7)
[2025-02-22 13:43] LABS: INR 2.5; Prothrombin Time 26.6 Seconds (11.1-14.7)
[2025-03-22 13:38] LABS: INR 3.0; Prothrombin Time 30.5 Seconds (11.1-14.7)
== END 2025-04-04 23:59 | disposition home or self-care (01) ==
LOC: ANHGOSHLAB 10:43
PROVIDERS: PCP Student in an Organized Health Care Education/Training Program; Visit Provider Internal Medicine Cardiovascular Disease
DX: Z51.81 Encounter for therapeutic drug level monitoring (principal); I48.0 Paroxysmal atrial fibrillation; Z79.01 Long term (current) use of anticoagulants
CPT/HCPCS: 36415; 85610

== ENCOUNTER 2025-06-21 10:38 | Outpatient (RCR) | payer MEDICARE, OTHER, SELFPAY ==
[2025-04-05 19:04] LABS: INR 2.3; Prothrombin Time 24.9 Seconds (11.1-14.7)
[2025-04-20 19:26] LABS: INR 2.3; Prothrombin Time 25.0 Seconds (11.1-14.7)
[2025-05-03 19:19] LABS: INR 1.5; Prothrombin Time 17.8 Seconds (11.1-14.7)
[2025-05-17 13:27] LABS: INR 2.1; Prothrombin Time 23.2 Seconds (11.1-14.7)
[2025-06-21 13:16] LABS: INR 2.3; Prothrombin Time 24.5 Seconds (11.1-14.7)
== END 2025-07-04 23:59 | disposition home or self-care (01) ==
LOC: ANHGOSHLAB 10:38
PROVIDERS: PCP Student in an Organized Health Care Education/Training Program; Visit Provider Internal Medicine Cardiovascular Disease
DX: Z51.81 Encounter for therapeutic drug level monitoring (principal); I48.0 Paroxysmal atrial fibrillation; Z79.01 Long term (current) use of anticoagulants
CPT/HCPCS: 36415; 85610